=== PATIENT | male | born 1985 | race American Indian/Alaskan Native ===

== ENCOUNTER 2021-10-26 00:30 | Emergency (ER) | payer SELFPAY ==
[2021-10-26] MEDS ORDERED: HALOPERIDOL LACTATE 5 MG/1 ML INJ IM ONE (01:55)
[2021-10-26] MEDS ORDERED: LORazepam 2 MG/ML VIAL IV ONE (01:55)
[2021-10-26] MEDS ORDERED: SODIUM CHLORIDE 0.9% 1000 ML 1,000 ML IV ONE (01:57)
[2021-10-26] MEDS ORDERED: diphenhydrAMINE 50 MG/ML VIAL IV ONE (01:57)
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
[2021-10-26 02:59] LABS: Alanine Aminotransferase 49 units/L (7-56); Albumin 4.6 g/dL (3.9-5); BUN/Creatinine Ratio 10; Blood Urea Nitrogen 9 mg/dL (9-20); Calcium 9.2 mg/dL (8.4-10.2); Hemolysis Index 3
[2021-10-26 03:03] LABS: Basophils % (Auto) 0.4 % (0.0-1.8); Eosinophils % (Auto) 0.1 % (0.0-4.3); Hematocrit 44.3 % (35.5-45.6); Hemoglobin 15.3 gm/dl (11.8-15.2); Lymphocytes # (Auto) 2.3 K/mm3 (1.2-5.4); Lymphocytes % (Auto) 37.4 % (13.4-35.0); Mean Corpuscular HGB Conc 35 % (32-34); Mean Corpuscular Volume 92 fl (84-94); Monocytes # (Auto) 0.3 K/mm3 (0.0-0.8); Platelet Count 297 K/mm3 (140-440); Red Blood Count 4.84 M/mm3 (3.65-5.03); Red Cell Distribution Width 13.7 % (13.2-15.2)
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
[2021-10-26] MEDS ORDERED: SODIUM CHLORIDE 0.9% 1000 ML 2,000 ML IV ONE ×2 (04:28→05:54)
--- NOTE | 2021-10-26 12:16 | Electrocardiograph Report ---
[facility] Test Date: 2021-10-26 Test Time: 02:34:54 Pat Name: ROCKY WELLINGTON Department: Room: Gender: M Baccarat Manager: MORRO : 1985 Requested By: CINDI COLIN Order Number: [id number] Reading MD: Josh Izaguirre Measurements Intervals [place] Rate: 105 P: 55 MO: 129 QRS: 29 QRSD: 95 T: 54 QT: 332 QTc: 439 Interpretive Statements SINUS TACHYCARDIA No previous ECG available for comparison Electronically Signed On 10-26-2021 12:16:13 EDT by Josh Izaguirre
[2021-10-26 12:58] VITALS: BP 105/96
== END 2021-10-26 13:02 | disposition home or self-care (01) ==
LOC: ED 00:30
DX: F10.129 Alcohol abuse with intoxication, unspecified (principal); V89.2XXA Person injured in unspecified motor-vehicle accident, traffic, initial encounter; Y93.89 Activity, other specified; Y92.89 Other specified places as the place of occurrence of the external cause; Y99.8 Other external cause status
CPT/HCPCS: 36415; 70450; 71260; 72125; 74177; 80053; 82550; 83690; 84484; 85025; 93005; 96361; 96372; 96374; 96375; 99284; J1200; J1630; J2060; J7030; Q9967; 80320; G0480